=== PATIENT | male | born 1980 | race Caucasian/White ===

== ENCOUNTER 2020-01-31 02:31 | Emergency (ER) | payer OTHER ==
[~2020-01-31] VITALS: Ht 167.6 cm; Wt 109.0 kg
[2020-01-31 07:57] VITALS: BP 119/79
== END 2020-01-31 07:59 | disposition home or self-care (01) ==
LOC: ER 02:55
DX: T46.1X5A Adverse effect of calcium-channel blockers, initial encounter (principal); F41.9 Anxiety disorder, unspecified; I10 Essential (primary) hypertension; Y92.89 Other specified places as the place of occurrence of the external cause
CPT/HCPCS: 93005; 99283